=== PATIENT | female | born 1940 | race Caucasian/White ===

== ENCOUNTER 2023-10-12 14:27 | Emergency (ER) | payer BC, MEDICARE ==
[~2023-10-12] VITALS: Ht 160 cm; Wt 52.3 kg
[2023-10-12 14:42] VITALS: TEMP 97.3
[2023-10-12 17:00] VITALS: BP 144/65
[2023-10-12 17:12] VITALS: O2SAT 98
== END 2023-10-12 17:21 | disposition home or self-care (01) ==
LOC: EDBD 14:27 → M ED 14:27
DX: S00.03XA Contusion of scalp, initial encounter (principal); Y92.019 Unspecified place in single-family (private) house as the place of occurrence of the external cause; Y93.9 Activity, unspecified; Y99.9 Unspecified external cause status; Z88.1 Allergy status to other antibiotic agents